=== PATIENT | female | born 1990 | race Two or more races ===

== ENCOUNTER → 2018-06-25 10:23 | Outpatient (CLI) | payer OTHER ==
[~2018-06-25 10:23] MED LIST: ALLEGRA ALLERGY60 MG PO; CEFTIN500 MG PO; FLONASE16 G1 NS
== END | disposition home or self-care (01) ==
LOC: EKG 10:23
DX: Z01.810 Encounter for preprocedural cardiovascular examination (principal)

== ENCOUNTER → 2018-06-25 10:29 | Outpatient (CLI) | payer OTHER | END | disposition home or self-care (01) | LOC: RAD 10:29 | DX: Z01.818 Encounter for other preprocedural examination (principal) ==

== ENCOUNTER 2018-07-02 06:15 | Day surgery (SDC) | payer OTHER | END 2018-07-02 13:15 | disposition home or self-care (01) | LOC: CIR.AMB 06:15 | DX: N64.82 Hypoplasia of breast (principal) ==

== ENCOUNTER 2020-09-09 15:02 | Outpatient (CLI) | payer OTHER | END 2020-09-09 18:00 | disposition home or self-care (01) | LOC: PPH VACUNA 15:02 | DX: Z23 Encounter for immunization (principal) ==

== ENCOUNTER 2021-05-07 09:33 | Outpatient (CLI) | payer OTHER | END 2021-05-07 09:40 | disposition home or self-care (01) | LOC: LAB 09:33 | PROVIDERS: ATTEND Emergency Medicine Pediatric Emergency Medicine | DX: U07.1 COVID-19 (principal) ==

== ENCOUNTER 2021-05-07 13:00 | Outpatient (CLI) | payer OTHER | END 2021-05-07 15:00 | disposition home or self-care (01) | LOC: ASH CLINIC 13:00 | PROVIDERS: ATTEND Internal Medicine Pulmonary Disease | DX: Z23 Encounter for immunization (principal); U07.1 COVID-19 ==

== ENCOUNTER 2021-09-29 09:00 | Outpatient (CLI) | payer OTHER | END 2021-09-29 09:15 | disposition home or self-care (01) | LOC: PPH VACUNA 09:00 | PROVIDERS: ATTEND Emergency Medicine Pediatric Emergency Medicine | DX: Z23 Encounter for immunization (principal) ==

== ENCOUNTER 2022-03-28 07:08 | Day surgery (SDC) | payer OTHER ==
[~2022-03-28] VITALS: Ht 160 cm; Wt 61.2 kg
== END 2022-03-28 14:20 | disposition home or self-care (01) ==
LOC: CIR.AMB 07:08
PROVIDERS: ATTEND Obstetrics & Gynecology
DX: N93.9 Abnormal uterine and vaginal bleeding, unspecified (principal); Z20.822 Contact with and (suspected) exposure to COVID-19

== ENCOUNTER 2024-12-20 18:29 | Emergency (ER) | payer OTHER ==
[~2024-12-20] VITALS: Ht 160 cm; Wt 69.4 kg
[2024-12-20] MEDS ORDERED: KETOROLAC TROMETHAMINE 30 MG VIAL IM STA (19:07)
[2024-12-20] MEDS ORDERED: KETOROLAC TROMETHAMINE 30 MG VIAL ONE (19:10)
== END 2024-12-20 21:47 | disposition home or self-care (01) ==
LOC: ER 18:30
DX: S60.221A Contusion of right hand, initial encounter (principal); S60.211A Contusion of right wrist, initial encounter; W10.8XXA Fall (on) (from) other stairs and steps, initial encounter; Y93.89 Activity, other specified; Y92.238 Other place in hospital as the place of occurrence of the external cause; Y99.9 Unspecified external cause status